=== PATIENT | male | born 2005 | race Caucasian/White ===

== ENCOUNTER 2025-02-23 20:50 | Emergency (ER) | payer BC, MEDICAID ==
[~2025-02-23] VITALS: Ht 182.9 cm; Wt 95.6 kg
[2025-02-23 21:16] VITALS: TEMP 36.7; O2SAT 98
[2025-02-24 00:30] VITALS: TEMP 98.1
[2025-02-24] MEDS ORDERED: LIDOCAINE 5% PATCH TOP SCH (00:30)
[2025-02-24] MEDS: ACETAMINOPHEN 500MG TABLET PO ONE (00:30)
[2025-02-24] MEDS ORDERED: CYCL5TAB3 MT (00:33)
[2025-02-24] MEDS ORDERED: LIDO-53 TP (00:33)
[2025-02-24 01:05] VITALS: BP 126/83; PULSE 85; RESP 16; O2SAT 99
== END 2025-02-24 01:12 | disposition home or self-care (01) ==
LOC: ER 20:50
DX: M54.50 Low back pain, unspecified (principal); Z79.899 Other long term (current) drug therapy
CPT/HCPCS: 99282; 99283